=== PATIENT | female | born 1965 | race Caucasian/White ===

== ENCOUNTER 2017-03-20 11:09 | Emergency (ER) | payer OTHER ==
[2017-03-20 11:14] VITALS: BP 137/79; PULSE 63; TEMP 97.8; BMI 26.0
[2017-03-20 11:25] VITALS: RESP 14; O2SAT 99
--- NOTE | 2017-03-20 11:25 | ED PDOC ---
HPI: Skin/Bite Injury Time Seen by Provider: 03/20/17 11:17 History Per: Patient (Bitten by insect yesterday at work left arm, left finger and left side of neck. Itchy and swollen left bicep. No SOB or fever.) Onset/Duration Of Symptoms: Days (2) Current Symptoms Are (Timing): Still Present Location Of Injury: Left: Arm, Hand, Neck Quality Of Symptoms: Itching, Swollen Severity: Mild Past Medical History Vital Signs: Last Vital Signs Temp 97.8 F 03/20/17 11:12 Pulse 63 03/20/17 11:12 Resp 16 03/20/17 11:12 BP 137/79 03/20/17 11:12 Pulse Ox 99 03/20/17 11:12 - Medical History PMH: Asthma (CHILDHOOD), CAD, HTN Denies: Diabetes, HIV, Chronic Kidney Disease - Family History Family History: States: Unknown Family Hx - Home Medications Home Medications: Ambulatory Orders Medication Instructions Recorded Aspirin [Aspirin Chewable] 81 mg PO DAILY 05/12/15 Olmesartan Medoxomil [Benicar] 20 mg PO DAILY 05/12/15 Propranolol Hydrochloride [Inderal] 80 mg PO DAILY 05/12/15 Amoxicillin/Clavulanate [Augmentin 1 tab PO BID #20 tab 03/20/17 875 MG-125 MG] Cetirizine HCl [Zyrtec] 10 mg PO DAILY #10 capsule 03/20/17 - Allergies Allergies/Adverse Reactions: Allergies Allergy/AdvReac Type Severity Reaction Status Date / Time No Known Allergies Allergy Verified 03/20/17 11:27 Review of Systems Constitutional: Negative for: Fever Respiratory: Negative for: Shortness of Breath Skin: Positive for: Rash Physical Exam - Physical Exam Appears: Positive for: Non-toxic, No Acute Distress Skin: Positive for: Rash (Erythemetous rash left bicep with selling and warmth No drainage. No vesicles. Minimal erythema left side of neck and left index thumb.) - ECG O2 Sat by Pulse Oximetry: 99 Disposition - Clinical Impression Clinical Impression: Insect bite - Patient ED Disposition Is Patient to be Admitted: No Counseled Patient/Family Regarding: Diagnosis, Need For Followup, Rx Given - Disposition Referrals: Juan F Callejas MD [Staff Provider] - Disposition: Routine/Home Disposition Time: 11:26 Condition: FAIR Prescriptions: Amoxicillin/Clavulanate [Augmentin 875 MG-125 MG] 1 tab PO BID #20 tab Cetirizine HCl [Zyrtec] 10 mg PO DAILY #10 capsule Instructions: Insect Bite or Sting (ED)
== END 2017-03-20 11:33 | disposition home or self-care (01) ==
LOC: H.ER 11:09
DX: S60.469A Insect bite (nonvenomous) of unspecified finger, initial encounter (principal); S10.96XA Insect bite of unspecified part of neck, initial encounter